=== PATIENT | male | born 2005 | race Caucasian/White ===

== ENCOUNTER 2024-03-15 17:35 | Emergency (ER) | payer OTHER ==
[~2024-03-15] VITALS: Ht 182.9 cm; Wt 68.0 kg
[2024-03-15] VITALS (18 sets, daily range): BP systolic 120–162; BP diastolic 73–104
[2024-03-15 18:31] LABS: BASO% 0.2 % (0-3); EOS% 0.7 % (0-8); HEMATOCRIT 47.8 % (39.0-50.0); HEMOGLOBIN 15.8 g/dl (14.0-18.0); IMMATURE GRANULOCYTES 0.9 % (0.0-5.0); LYMPH% 19.9 % (15-41); MEAN CELL VOLUME 91.2 fL CALC (80.0-100.0); MEAN CORPUSCULAR HGB 30.2 pG CALC (26.0-32.0); MEAN CORPUSCULAR HGB CONC 33.1 g/dL CAL (32.0-36.0); MONO% 7.7 % (2-13); NEUT# 6.8 thou/uL (1.82-7.42); NEUT% 70.6 % (42-76); RED BLOOD COUNT 5.24 mill/uL (4.70-6.10); RED CELL DISTRI WIDTH 11.8 % (11.5-15.5)
[2024-03-15 18:44] LABS: INTERNATIONAL NORMALIZED RATIO 1.2 RATIO (0.7-1.3)
[2024-03-15 18:45] LABS: POTASSIUM 4.4 mmol/l (3.5-5.1)
[2024-03-15 18:46] LABS: PROTHROMBIN TIME 11.4 SECONDS (9.0-12.5)
[2024-03-15] MEDS ORDERED: ACETAMINOPHEN 325 MG/TAB PO ONE (20:55)
[2024-03-15] MEDS ORDERED: KETOROLAC TROMETHAMINE 15 MG/ML SDV IV ONE (22:30)
== END 2024-03-15 23:03 | disposition home or self-care (01) | DRG 605 ==
LOC: ED 17:35
PROVIDERS: Family Medicine
DX: S00.81XA Abrasion of other part of head, initial encounter (principal); S00.412A Abrasion of left ear, initial encounter; R07.89 Other chest pain; F17.290 Nicotine dependence, other tobacco product, uncomplicated; V43.62XA Car passenger injured in collision with other type car in traffic accident, initial encounter